=== PATIENT | male | born 1970 | race Caucasian/White ===

== ENCOUNTER 2016-11-22 16:24 | Emergency (ER) | payer BC, MEDICAID ==
[~2016-11-22] VITALS: Wt 91.0 kg
[2016-11-22] MEDS ORDERED: CLINDAMYCIN 300 MG CAP PO ONE (18:00)
[2016-11-22] MEDS ORDERED: LIDOCAINE 1% (MDV) 20 ML INJ SC ONE (18:00)
[2016-11-22] MEDS ORDERED: MUPI22OI2 TOP (18:29)
[2016-11-22] MEDS ORDERED: CLIN-73 PO (18:29)
--- NOTE | 2016-11-22 18:32 | ERD ---
ER Documentation Chief Complaint Date/Time DATE: 11/22/16 TIME: 18:31 Chief Complaint RIGHT 1ST TOE INJURY HPI This 38-year-old male presents with some skin lesions. Started with one his right fourth toe with has some drainage and spontaneously. Over the last few days he has had some redness and swelling around the base of his right big toe as well as some pustules on his abdomen and proximal right foot. He denies any fevers, vomiting or shortness breath or chest pain. He does have a spouse who has similar lesions on the trunk. ROS All systems reviewed and are negative except as per history of present illness. Medications Home Meds Active Scripts Mupirocin* (Bactroban*) 2% -22 Gram Oint...g., 1 APPLIC TOP BID for 7 Days, EA Prov:GERMAN MCHUGH MD 11/22/16 Clindamycin Hcl* (Clindamycin Hcl*) 300 Mg Capsule, 300 MG PO QID for 10 Days, CAP Prov:GERMAN MCHUGH MD 11/22/16 Allergies Allergies: Coded Allergies: No Known Allergy (Unverified , 11/22/16) PMhx/Soc History of Surgery: Yes (appendectomy) Anesthesia Reaction: No Hx Neurological Disorder: No Hx Respiratory Disorders: No Hx Cardiac Disorders: No Hx Psychiatric Problems: Yes (anxiety) Hx Miscellaneous Medical Probl: No Hx Alcohol Use: No (denies) Hx Substance Use: No (denies) Hx Tobacco Use: No (denies) Smoking Status: Never smoker Physical Exam Vitals Vital Signs Date Time Temp Pulse Resp B/P Pulse Ox O2 Delivery O2 Flow Rate FiO2 11/22/16 16:26 97.6 99 18 127/78 99 Physical Exam Const: [] Alert, [id number] per Head: Atraumatic Eyes: Normal Conjunctiva ENT: Normal External Ears, Nose and Mouth. Neck: Full range of motion..~ No meningismus. Resp: Clear to auscultation bilaterally Cardio: Regular rate and rhythm, no murmurs Abd: Soft, non tender, non distended. Normal bowel sounds Skin: No petechiae or rashes. There is a erythematous purulent pustule in the right forefoot, left abdomen. Patient has a paronychia in the right big toe which is spontaneously drained. There is no bony tenderness, induration, streaking, fluctuance appreciated. Back: No midline or flank tenderness Ext: No cyanosis, or edema Neur: Awake and alert Psych: Normal Mood and Affect Results 24 hrs Current Medications Medications (Trade) Dose Ordered Sig/Sonido Route PRN Reason Start Time Stop Time Status Last Admin Dose Admin Clindamycin HCl (Cleocin) 300 mg ONCE ONCE PO 11/22/16 18:00 11/22/16 18:01 DC 11/22/16 18:27 Lidocaine (Xylocaine 1% (Mdv) 20 ml) 20 ml ONCE ONCE SC 11/22/16 18:00 11/22/16 18:01 DC Procedures/MDM Procedure note-the wounds were cleansed and dressed in the patient's right foot. The paronychia was debrided by patient request and wound was dressed. The pustule was unroofed and dressed as well. Patient has signs and symptoms of folliculitis. 3. The lesions are consistent with likely MRSA. He was given clindamycin 300 mg by mouth discharged home with a course of clindamycin and Bactroban instructions for wound care. Patient was advised to have any household members with similar lesions treated, return for increased redness, swelling, fevers or new worsening symptoms as directed after instructions. Departure Diagnosis: Primary Impression: Abscess Additional Impression: Paronychia Laterality: right Qualified Code: L03.011 - Paronychia, right Condition: Stable Patient Instructions: Abscess, Incision And Drainage, Mrsa Skin Infection, Suspected Or Confirmed, Paronychia Additional Instructions: Recommend have household contacts treated as well. Likely MRSA. Recheck for new or worsening symptoms with primary care doctor. GERMAN MCHUGH MD Nov 22, 2016 18:32
[2016-11-22 18:59] VITALS: BP 125/71; PULSE 67; RESP 16; TEMP 98.2
== END 2016-11-22 19:01 | disposition home or self-care (01) ==
LOC: FTE 16:24
DX: L02.611 Cutaneous abscess of right foot (principal); L03.011 Cellulitis of right finger
CPT/HCPCS: 10060; Z7502; Z7610